=== PATIENT | male | born 1965 | race African-American/Black ===

== ENCOUNTER 2018-09-05 06:50 | Emergency (ER) | payer OTHER ==
[~2018-09-05] VITALS: Ht 188 cm; Wt 108.0 kg
[~2018-09-05 06:50] MED LIST: ACET-2178 PO; GABA-531 PO; HYDR-4009 PO; IBUP-2029 PO
[2018-09-05 09:51] LABS: BASOPHILS % 0.6 % (0.0-2.0); EOSINOPHILS % 1.9 % (0.0-5.0); HEMATOCRIT. 43.5 % (42.0-52.0); HEMOGLOBIN. 14.7 g/dL (14.0-18.0); LYMPHOCYTES % 17.4 % (20.0-50.0); MEAN CORPUSCULAR HEMOGLOBIN 29.2 pg (28.0-32.0); MEAN CORPUSCULAR VOLUME 86.1 fL (80.0-94.0); MEAN PLATELET VOLUME 9.2 fl (7.4-10.4); MONOCYTES % 8.2 % (2.0-8.0); NEUTROPHILS % 71.9 % (40.0-76.0); PLATELET 235 x1000/uL (130-400); RED BLOOD CELL COUNT 5.05 mill/uL (4.7-6.1); RED CELL DISTRIBUTION WIDTH 13.7 % (11.6-14.6)
[2018-09-05 09:58] LABS: CHLORIDE 109 mEq/L (98-107)
[2018-09-05] MEDS ORDERED: IOHEXOL-300 100 ML BOTTLE ONE (10:51)
[2018-09-05 11:53] VITALS: BP 125/70
== END 2018-09-05 11:56 | disposition home or self-care (01) ==
LOC: ER 06:50
DX: R06.02 Shortness of breath (principal); Z98.890 Other specified postprocedural states; Z79.899 Other long term (current) drug therapy
CPT/HCPCS: 36415; 70491; 71045; 80053; 85025; 99284; Q9967